=== PATIENT | male | born 1965 | race African-American/Black ===

== ENCOUNTER 2022-06-21 17:44 | Emergency (ER) | payer OTHER ==
[2022-06-21 17:53] VITALS: BP 131/68; PULSE 55; RESP 18; TEMP 97.1; BMI 25.8
== END 2022-06-21 21:51 | disposition home or self-care (01) ==
LOC: JER 17:44
DX: I83.92 Asymptomatic varicose veins of left lower extremity (principal)
CPT/HCPCS: 93971-TC; 99284-25

== ENCOUNTER 2022-06-21 21:54 | Inpatient (IN) | payer OTHER ==
[2022-06-21 14:57] VITALS: BMI 25.8
[~2022-06-21 21:54] MED LIST: BENZONATATE 200 MG CAPSULE PO PRN; BISMUTH SUBSALICYLATE 524 MG/30 ML PO PRN; DICYCLOMINE HCL 10 MG CAPSULE PO PRN; IBUPROFEN 400 MG TABLET (FP) PO PRN; IBUPROFEN 600 MG TABLET (FP) PO PRN; LOPERAMIDE HCL 2 MG CAPSULE PO PRN; MAG HYDROX/AL HYDROX/SIMETH 30 ML UNIT-DOSE CUP PO PRN; MAGNESIUM HYDROX 2400MG/30ML ORAL SUSPENSION 30 ML CUP PO PRN; NALOXONE HCL (KLOXXADO) 8 MG SPRAY NS PRN; NALOXONE HCL 0.4 MG/ML VIAL IM PRN; NICOTINE 10 MG CARTRIDGE (INHALER) IH PRN; ONDANSETRON *ODT* 4 MG TABLET SL PRN; POLYETHYLENE GLYCOL (HEALTHYLAX) 3350 17 GM PACKET PO PRN; guaiFENesin 600 MG TABLET.ER (FP) PO PRN
[2022-06-21] MEDS: THIAMINE HCL 100 MG TABLET (FP) PO SCH (23:47)
[2022-06-21] MEDS: MELATONIN 5 MG TABLETS PO SCH (23:48)
[2022-06-22] MEDS: BENZOCAINE/MENTHOL (CHLORASEPTIC ) LOZENGE MM PRN ×2 (09:01→17:24)
[2022-06-22] MEDS: PRENATAL VITAMINS W/ FOLIC ACID TABLET (FP) PO SCH (09:01)
[2022-06-22] MEDS: ACETAMINOPHEN 325 MG TABLET (FP) PO PRN ×2 (09:17→17:22)
[2022-06-22] MEDS ORDERED: chlordiazePOXIDE HCL 25 MG CAPSULE PO PRN (10:27)
[2022-06-22] MEDS: chlordiazePOXIDE HCL 25 MG CAPSULE PO SCH ×3 (11:15→22:34)
[2022-06-22] MEDS: THIAMINE HCL 100 MG TABLET (FP) PO SCH (22:31)
[2022-06-22] MEDS: MELATONIN 5 MG TABLETS PO SCH (22:31)
[2022-06-22] MEDS: METHOCARBAMOL 500 MG TABLET PO PRN (22:33)
[2022-06-22] MEDS: hydrOXYzine PAMOATE 25 MG CAPSULE (FP) PO PRN (22:33)
[2022-06-23] MEDS: chlordiazePOXIDE HCL 25 MG CAPSULE PO SCH ×4 (06:09→22:42)
[2022-06-23] MEDS: PRENATAL VITAMINS W/ FOLIC ACID TABLET (FP) PO SCH (10:31)
[2022-06-23] MEDS: MELATONIN 5 MG TABLETS PO SCH (22:42)
[2022-06-23] MEDS: THIAMINE HCL 100 MG TABLET (FP) PO SCH (22:42)
[2022-06-24] MEDS: chlordiazePOXIDE HCL 10 MG CAPSULE PO SCH ×4 (05:59→22:33)
[2022-06-24] MEDS: ACETAMINOPHEN 325 MG TABLET (FP) PO PRN ×2 (06:07→17:43)
[2022-06-24] MEDS: METHOCARBAMOL 500 MG TABLET PO PRN ×2 (06:08→13:14)
[2022-06-24] MEDS: hydrOXYzine PAMOATE 25 MG CAPSULE (FP) PO PRN (10:50)
[2022-06-24] MEDS: PRENATAL VITAMINS W/ FOLIC ACID TABLET (FP) PO SCH (10:50)
[2022-06-24] MEDS: THIAMINE HCL 100 MG TABLET (FP) PO SCH (22:33)
[2022-06-24] MEDS: MELATONIN 5 MG TABLETS PO SCH (22:33)
[2022-06-25] MEDS ORDERED: chlordiazePOXIDE HCL 10 MG CAPSULE PO PRN
[2022-06-25] MEDS ORDERED: chlordiazePOXIDE HCL 10 MG CAPSULE PO SCH (05:00)
[2022-06-25] MEDS: ACETAMINOPHEN 325 MG TABLET (FP) PO PRN (06:03)
[2022-06-25] MEDS: METHOCARBAMOL 500 MG TABLET PO PRN (06:03)
[2022-06-25 06:27] VITALS: RESP 18
[2022-06-25 08:43] VITALS: TEMP 98.1
[2022-06-25] MEDS: PRENATAL VITAMINS W/ FOLIC ACID TABLET (FP) PO SCH (10:26)
[2022-06-25 11:13] LABS: HEMATOCRIT 38.9 % (35.4-49); MCHC 33.5 g/dl (32.0-35.9); MEAN CELL VOLUME 92.4 fl (80-96); MEAN PLT VOLUME 7.4 fl (7.5-11.1); PLATELET COUNT 214 10^3/uL (134-434); RDW 14.4 % (11.9-15.9)
[2022-06-25 13:05] VITALS: BP 119/67; PULSE 63
[2022-06-26] MEDS ORDERED: chlordiazePOXIDE HCL 10 MG CAPSULE PO ONE (05:00)
== END 2022-06-25 15:19 | disposition left against medical advice (07) | DRG 770 ==
LOC: YASAS 21:54 → Y3N 23:06
PROVIDERS: ADMIT Allergy & Immunology; ATTEND Surgery
PROC: HZ2ZZZZ Detoxification Services for Substance Abuse Treatment (ICD-10-PCS; principal; 2022-06-21)
DX: F10.230 Alcohol dependence with withdrawal, uncomplicated (principal); F14.20 Cocaine dependence, uncomplicated; F17.210 Nicotine dependence, cigarettes, uncomplicated; I83.92 Asymptomatic varicose veins of left lower extremity
CPT/HCPCS: 36415; 85027; 86780; C9803-CS; U0003; U0005